=== PATIENT | female | born 1990 | race African-American/Black ===

== ENCOUNTER 2025-04-02 17:32 | Emergency (ER) | payer MEDICAID, SELFPAY ==
--- OUTSIDE RECORDS SUMMARY | 2024-09-18 05:00 | XMS_ITS ---
Author Organization [facility] Address [address] [place] [address] Care Team Providers Care Precision Lens Generator Name Role Phone Migration, Provider Unavailable Unavailable REASON FOR VISIT EMR-Jaime Encounters Encounter Location Date Provider Diagnosis [facility] [address] [place] [address] 09/18/2024 Provider Migration Plan Of Treatment Medication Medication Name Sig Start Date Stop Date Notes Diflucan 150 mg 1 tablet oral 1 time per day; Duration: 1 days 07/21/2018 07/22/2018 Progress Notes * THOMAS MarikaOB:1990 (35 yo F)Acc No.[id number]:09/18/2024 Patient: Eugenie TOMLINSON :1990 A ge:34 Y S ex:Female Address:[address] [place] [address], [address] * Refills Stop Diflucan tablet, 150 mg, oral, 1, 1 tablet, 1 time per day, 1 days Subjective: * Chief Complaints: * E MR-Jaime * Medical History: * Surgical History: * Hospitalization/Major Diagno stic Procedure: * Medications: Objective: * Vitals: * Physical Examination: Assessment: Plan: * Treatment: * Procedure Codes: * * Date:
--- OUTSIDE RECORDS SUMMARY | 2024-09-19 05:00 | XMS_ITS ---
Author Organization [facility] Address [address] [place] [address] Care Team Providers Care Painter Helper Sign Name Role Phone Migration, Provider Unavailable Unavailable Allergies Allergen (clinical drug ingredient) Drug/Non Drug Allergy documented on EMR Reaction Allergy Type Onset Date Status sulfamethoxazole / trimethoprim Bactrim Hives Drug Allergy Active metronidazole Flagyl Unknown Drug Allergy Act julio Keflex Unknown Drug Allergy Active Vicodin Unknown Drug Allergy Active REASON FOR VISIT EMR-Jaime Encounters Encounter Location Date Provider Diagnosis [facility] [address] [place] [address] 09/19/2024 Provider Migration Plan Of Treatment No Information Progress Notes * THOMAS MarikaOB:1990 (35 yo F)Acc No.[id number]:09/19/2024 Patient: Eugenie TOMLINSON :1990 A ge:34 Y S ex:Female Address:[address] [place] [address], [address] Subjective: * Chief Complaints: * E MR-Jaime * Medical History: * Surgical History: * Hospitalization/Major Diagno stic Procedure: * Medications: * Allergies: B actrim: Hives - AllergyFlagyl: AllergyKeflex: AllergyVicodin: Allergy Objective: * Vitals: * Physical Examination: Assessment: Plan: * Treatment: * Procedure Codes: * * Date:
[2025-04-02] VITALS (7 sets, daily range): BP systolic 129–168; BP diastolic 82–120; PULSE 88–93; TEMP 37; O2SAT 100; BMI 35.2
--- NOTE | 2025-04-02 17:41 | ECG_ITS ---
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
--- NOTE | 2025-04-02 17:41 | XR_ITS ---
[place] [address] Patient Name: RICARDO SHAH MRN: [id number] date: 1990 Sex: F Assigned Patient Location: ED.MAIN Current Patient Location: ED.MAIN Accession/Order Number: [id number] Exam Date: 04/02/2025 18:07 Report Date: 04/02/2025 18:08 At the request of: CEE BORDEN NP Procedure: XR chest 2V XR chest 2V 04/02/2025 6:05 PM SIGNS AND SYMPTOMS: ^sob ^Y PROTOCOL: Frontal and lateral radiographs of the chest COMPARISON: None FINDINGS: The trachea is midline. The heart and mediastinal structures are within normal limits. The lung parenchyma is clear. The bony thorax is intact. XR/XR chest 2V IMPRESSION: No acute cardiopulmonary pathology. Impression dictated by: Rudy Raymond M.D. 04/02/2025 6:08 PM Dictation Location: [place] [address] Electronically authenticated by: [id number] Y Date: 04/02/2025 18:08
--- NOTE | 2025-04-02 17:43 | ED.GENADUL1 ---
HPI HPI - General Adult General Chief complaint: Shortness of Breath/Dyspnea Stated complaint: SHORTNESS OF BREATH HEART IS BEATING FAST Time Seen by Provider: 04/02/25 17:41 History of Present Illness HPI narrative: Patient is a 35-year-old -Armenian female who presents to the emergency department today for evaluation concerns for shortness of breath. She endorses she was swimming at the [employer] today and while driving back home she began feeling short of breath. No chest pain. She has any dizziness or syncope. No abdominal pain or nausea/vomiting. No fever/chills or cough/cold symptoms. She denies any allergies to medication. She reports she is a non-smoker. No history of VTE. She mention she is not on any hormonal control and no long distance travel. Related Data Home Medications ?Medication ?Instructions ?Recorded ?Confirmed phentermine 37.5 mg tablet 37.5 mg PO DAILY 04/02/25 04/02/25 Allergies Allergy/AdvReac Type Severity Reaction Status Date / Time acetaminophen (From Vicodin) Allergy Anaphylaxis Verified 04/02/25 17:42 cephalexin (From Keflex) Allergy hives Verified 04/02/25 17:42 hydrocodone (From Vicodin) Allergy Anaphylaxis Verified 04/02/25 17:42 sulfamethoxazole (From Allergy Hives Verified 04/02/25 17:42 Bactrim) trimethoprim (From Bactrim) Allergy Hives Verified 04/02/25 17:42 Review of Systems ROS Status of ROS 10 or more systems reviewed and unremarkable except as noted in history and below PFSH PFSH Social History Little interest or pleasure in doing things: not at all Feeling down, depressed, or hopeless: not at all Exam Narrative Exam Narrative: Constituational: Awake/ alert, no apparent distress, well hydrated HENMT: normocephalic, external ears normal, moist oral mucous membranes and oropharynx normal, no trismus, no stridor Eyes: EOMI and conjunctivae normal Neck: ROM intact Chest: inspection of chest normal Respiratory: Normal respiratory effort, clear to auscultation bilaterally Cardio: regular rate and regular rhythm GI: soft to palpation and non-tender Back: nontender MSK: ROM intact, +NVI Skin: no rashes or petechiae Neuro: no focal deficits Psych: mental status grossly normal Constitutional Vital Signs, click to edit/add: Last Vital Signs Temp 98.6 F 07/12/25 17:42 Pulse 90 04/02/25 18:10 Resp 18 04/02/25 18:10 BP 138/82 04/02/25 18:09 Pulse Ox 100 04/02/25 18:10 O2 Del Method Room Air 04/02/25 17:42 Course Vital Signs Vital signs: Vital Signs Temperature 98.6 F 04/02/25 17:42 Pulse Rate 93 H 04/02/25 17:42 Respiratory Rate 24 H 04/02/25 17:42 Blood Pressure 168/120 H 04/02/25 17:42 Pulse Oximetry 100 04/02/25 17:42 Oxygen Delivery Method Room Air 04/02/25 17:42 Temperature 98.6 F 04/02/25 17:42 Pulse Rate 90 04/02/25 18:10 Respiratory Rate 18 04/02/25 18:10 Blood Pressure 138/82 04/02/25 18:09 Pulse Oximetry 100 04/02/25 18:10 Oxygen Delivery Method Room Air 04/02/25 17:42 Medical Decision Making MDM Narrative Medical decision making narrative: Patient is a well-appearing 35-year-old -Armenian female who presented to the emergency department today for evaluation concerns for shortness of breath. Initial examination vital signs overall stable. She does not appear to be exhibiting any ischemic symptoms and does appear euvolemic on exam. No clinical evidence concerning for anaphylaxis or angioedema in addition as patient did mention [place]. EKG without acute changes and troponin is negative x 1. Normal BNP. D-dimer within normal range. Chest x-ray without critical findings. Labs stable as below. Patient was reevaluated multiple times while in the emergency department and had no significant changes in condition. She has otherwise remained hemodynamically stable. Clinical impression dyspnea, question for possible anxiety. Discussed this with the patient including recommendations for supportive care. Advised on follow-up with patient's primary care provider for reevaluation. Discussed signs and symptoms of any worsening condition and when to consider reevaluation by the emergency department. Patient verbalized an understanding of this and is agreeable with the plan to be discharged home. Medical Records Medical records reviewed: Yes I reviewed the patient's medical records Lab Data Lab results reviewed: Yes I reviewed the patient's lab results Labs: Lab Results 04/02/25 Range/Units 17:55 WBC 5.7 (4.0-11.0) 10^3/uL RBC 4.02 L (4.20-5.40) 10^6/uL Hgb 12.0 (12.0-16.0) g/dL Hct 36.0 (36.0-48.0) % MCV 89.6 (81.0-99.0) fL MCH 29.9 (26.7-34.0) pg MCHC 33.3 (29.9-35.2) g/dL RDW 12.7 (11.0-15.0) % Plt Count 212 (150-450) 10^3/uL MPV 9.6 (9.5-13.5) fL Neut % (Auto) 47.5 (43.0-75.0) % Lymph % (Auto) 38.3 (20.5-60.0) % Lander % (Auto) 10.7 (1.7-12.0) % Eos % (Auto) 2.6 (0.9-7.0) % Baso % (Auto) 0.5 (0.2-2.0) % Neut # (Auto) 2.7 (1.4-6.5) 10^3/uL Lymph # (Auto) 2.2 (1.2-3.8) 10^3/uL Lander # (Auto) 0.6 (0.3-0.8) 10^3/uL Eos # (Auto) 0.2 (0.0-0.7) 10^3/uL Baso # (Auto) 0.0 (0.0-0.1) 10^3/uL Abs Immat Gran (auto) 0.02 (0.00-0.03) 10^3/uL Imm/Tot Granulo (auto) 0.4 (0.0-0.5) % D-Dimer 0.35 (<=0.59) mg/L FEU Sodium 141 (136-145) mmol/L Potassium 3.4 L (3.5-5.1) mmol/L Chloride 104 (98-107) mmol/L Carbon Dioxide 24.1 (21.0-32.0) mmol/L Anion Gap 16.3 BUN 16.0 (7.0-18.0) mg/dL Creatinine 0.73 (0.55-1.02) mg/dL Est GFR ( Amer) >60 (>=60 mL/min/1.73m^2) Est GFR (Non-Af Amer) >60 (>=60 mL/min/1.73m^2) BUN/Creatinine Ratio 21.9 Glucose 107 H (74-106) mg/dL Calcium 9.4 (8.5-10.1) mg/dL Total Bilirubin 0.3 (0.2-1.0) mg/dL AST 14 L (15-37) U/L ALT 19 (14-59) U/L Alkaline Phosphatase 96 (46-116) U/L Troponin I High Sens <4.0 L (4.0-51.3) pg/mL NT-Pro-B Natriuret Pep 10.0 (<=450.0) pg/mL Total Protein 7.6 (6.4-8.2) g/dL Albumin 3.8 (3.4-5.0) g/dL Globulin 3.8 g/dL Albumin/Globulin Ratio 1.0 Imaging Data Chest x-ray: Attestation: I have reviewed the pertinent imaging results. Radiologist's impression: ITS Impressions Chest X-Ray 04/02/25 17:41 IMPRESSION: No acute cardiopulmonary pathology. Impression dictated by: Rudy Raymond M.D. 04/02/2025 6:08 PM Dictation Location: [place] [address] Electronically authenticated by: [id number] Y Date: 04/02/2025 18:08 ECG Data Attestation: I personally reviewed and interpreted this ECG as follows: (SR with HR 87, no acute/ischemic changes) Discharge Plan Discharge Chief Complaint: Shortness of Breath/Dyspnea Clinical Impression: Shortness of breath Patient Disposition: Home, Self-Care Prescriptions / Home Meds: No Action phentermine 37.5 mg tablet 37.5 mg PO DAILY Rx Instructions: must administer 30 minutes before or 1-2 hours after breakfast Print Language: Kinyarwanda Instructions: Dyspnea (ED) Additional Instructions: Please follow the primary care provider for reevaluation as discussed. To the ER with any new or worsening symptoms/concerns. Referrals: Physician,Non-Staff, MD [Primary Care Provider] - 1 week
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
--- OUTSIDE RECORDS SUMMARY | 2025-04-02 17:54 | XMS_ITS | Data Portability ---
Author Organization [facility] ([facility] - urgcct Address [address] [facility] [address] [place] [address] Care Team Providers Care Charging Manipulator Name Role Phone ERICK HUYNH Primary Care Provider [phone] ERICK HUYNH Referring Provider Assessment No assessment recorded. Plan of Treatment Reminders Order Date Submit Date Provider Last Modified By Organization Details Last Modified Time Details Appointments None record ed. Lab mycopl asma genita lium DNA, qualit ative, PCR 2024 025 [facility], [address] [place] [address], [address], 5 12:25:05 cultur e, urine 2024 025 [facility], [address] [place] [address], [address], 5 08:00:13 urinal ysis, comple te 2024 025 [facility], [address] [place], [address], 5 01:59:31 pap, LB + HPV - source cervix 2024 025 [email or web address], [address] [place] [address], [address], 5 08:09:23 bacter ial vagino sis + vagini tis panel, vagina l 2024 025 [facility], [address] [place] [address], [address], 5 21:35:25 CT, DNA, qual, PCR, unspec ified specim en 2024 025 [facility], [address] [place] [address], 180[address], 5 12:25:04 NG, DNA, qual, PCR, unspec ified specim en 2024 025 [facility], [address] [place] [address], 210[address], 5 12:25:08 Trepon sujata pallid um Ab,Qn, IA,Ser um or Plasma 2024 025 [facility], [address] [place] [address], [address], 5 01:59:33 HIV 1+2 AB + HIV 1 p24 Ag, qualit ative immuno assay, serum 2024 025 [facility], [address] [place] [address], 07[address], 5 01:59:33 HBsAg (hepat itis B surfac e Ag), serum 2024 025 [facility], [address] [place] [address], 47[address], 5 01:59:33 vitami n D, 25-hyd brenda, total, serum 2024 025 [facility], [address] [place] [address], 259[address], 5 01:59:32 CBC w/ diff 2024 025 [facility], [address] [place] [address], [address], 5 01:59:32 pregna ncy test, urine 2024 025 [facility] [place], [address] [place] [address], [address], [place], [address], 5 10:14:27 pregna ncy test, urine 2024 025 [facility] [place], [address] [place] [address], [address], [place], [address], 5 13:55:34 pregna ncy test, urine 2023 024 [email or web address] [facility] [place], [address] [place] [address], [address] [facility], [place], [address], 4 10:06:58 Referral None record ed. Procedures None record ed. Surgeries None record ed. Imaging electr ocardi ogram 2024 025 [email or web address] [facility] [place], [address] [place] [address], [address] [facility], [place], [address], 5 13:58:36 Medication Orders famoti dine 20 mg tablet 2024 025 [facility], [address], [place], [address], 5 10:14:16 Zepbou nd 2.5 mg/0.5 mL subcut aneous pen inject or 2024 025 [facility], [address], [place], [address], 5 10:14:17 famoti dine 40 mg tablet 2024 025 [email or web address] [facility], [address], [place], [address], 5 09:46:57 Wegovy 0.5 mg/0.5 mL subcut aneous pen inject or 2024 025 [facility], [address], [place], [address], 5 10:07:25 Wegovy 0.25 mg/0.5 mL subcut aneous pen inject or 2023 024 [facility], [address], [place], [address], 5 10:07:09 ferrou s sulfat e 325 mg (65 mg iron) tablet 2023 024 [email or web address] [facility], [address], [place], [address], 5 09:47:00 Senna with Docusa te Sodium 8.6 mg-50 mg tablet 2023 024 [facility], [address], [place], [address], 10:06:43 Patient TargetsNo targets recorded. Patient Instructions Encounter Date Encounter Id Patient Instructions Last Modified By Organization Details Last Modified Time 08/16/2024 [id number] When You Want to Lose Weight: Care Instructions [email or web address] Not available 08/16/2024 10:05:10 09/24/2024 [id number] When You Want to Lose Weight: Care Instructions [email or web address] Not available 09/24/2024 12:02:38 body mass index: care instructions [email or web address] Not available 09/24/2024 12:02:38 learning about healthy weight [email or web address] Not available 09/24/2024 12:02:37 10/18/2024 [id number] chest pain: care instructions [email or web address] Not available 10/18/2024 10:38:55 11/18/2024 [id number] body mass index: care instructions [email or web address] Not available 11/18/2024 10:10:53 learning about healthy weight [email or web address] Not available 11/18/2024 10:10:53 Reason for Referral None Reported. Results Created Date Observation Date Name Description Value Unit Range Abnormal Flag Note LastModifiedBy Organization Detail LastModifiedTime 08/16/20 24 08/16/2024 pregn mitul test, urine HCG negati ve Not Available [facility] - [address], [address], 08/16/2024 10:06:32 09/24/19 25 09/24/2024 pregn mitul test, urine HCG negati ve Not Available [facility] - [address], [place], [address], 09/24/2024 11:58:20 11/18/1911/18/2024 pregn mitul test, urine HCG negati ve Not Available [facility] - [address], [place], [address], 11/18/2024 10:07:37 12/10/1912/09/2024 URINA LYSIS , COMPL ETE urine appearance CLOUDY Not Available [facility] [address] [place], [address], 12/10/2024 01:59:31 12/10/19 25 12/09/2024 URINA LYSIS , COMPL ETE color STRAW Not Available [facility] [address] [place], [address], 12/10/2024 01:59:31 12/10/19 25 12/09/2024 URINA LYSIS , COMPL ETE glucose NEGATI VE negati ve Not Available [facility] [address] [place] [address], [address], 12/10/2024 01:59:31 12/10/19 25 12/09/2024 URINA LYSIS , COMPL ETE bilirubin NEGATI VE negati ve Not Available [facility] [address] [place] [address], [address], 12/10/2024 01:59:31 12/10/19 25 12/09/2024 URINA LYSIS , COMPL ETE ketones NEGATI VE negati ve Not Available [facility] [address] [place] [address], [address], 12/10/2024 01:59:31 12/10/19 25 12/09/2024 URINA LYSIS , COMPL ETE specific gravity 1.015 1.005- 1.03 Not Available [facility] [address] [place] [address], [address], 12/10/2024 01:59:31 12/10/19 25 12/09/2024 URINA LYSIS , COMPL ETE blood NEGATI VE negati ve Not Available [facility] [address] [place] [address], [address], 12/10/2024 01:59:31 12/10/19 25 12/09/2024 URINA LYSIS , COMPL ETE pH 6.0 5.0-8. 5 Not Available [facility] [address] [place] [address], [address], 12/10/2024 01:59:31 12/10/19 25 12/09/2024 URINA LYSIS , COMPL ETE protein NEGATI VE negati ve Not Available [facility] [address] [place] [address], 74[address], 12/10/2024 01:59:31 12/10/19 25 12/09/2024 URINA LYSIS , COMPL ETE urobilinogen NEGATI VE 0.0-1. 0 Not Available [facility] [address] [place] [address], [address], 12/10/2024 01:59:31 12/10/19 25 12/09/2024 URINA LYSIS , COMPL ETE nitrite POSITI VE negati ve abnormal Not Available [facility] [address] [place] [address], [address], 12/10/2024 01:59:31 12/10/19 25 12/09/2024 URINA LYSIS , COMPL ETE leukocyte est 2+ negati ve abnormal Not Available [facility] [address] [place] [address], [address], 12/10/2024 01:59:31 12/10/19 25 12/09/2024 URINA LYSIS , COMPL ETE RBC's <2 <2 Not Available [facility] [address] [place] [address], 7[address], 12/10/2024 01:59:31 12/10/19 25 12/09/2024 URINA LYSIS , COMPL ETE WBC's 20-50 <5 abnormal Not Available [facility] [address] [place] [address], 949[address], 12/10/2024 01:59:31 12/10/19 25 12/09/2024 URINA LYSIS , COMPL ETE epithelial cells <5 <5 Not Available [facility] [address] [place] [address], [address], 12/10/2024 01:59:31 12/10/19 25 12/09/2024 URINA LYSIS , COMPL ETE cast NONE none/l pf Not Available [facility] [address] [place] [address], 98266, 12/10/2024 01:59:31 12/10/19 25 12/09/2024 URINA LYSIS , COMPL ETE crystals NONE none Not Available [facility] [address] [place] [address], 61683, 12/10/2024 01:59:31 12/10/1912/09/2024 URINA LYSIS , COMPL ETE mucus NEGATI VE negati ve Not Available [facility] [address] [place] [address], 47592, 12/10/2024 01:59:31 12/10/1912/09/2024 URINA LYSIS , COMPL ETE bacteria 4+ none abnormal Not Available [facility] [address] [place] [address], 04944, 12/10/2024 01:59:31 12/10/1912/09/2024 VITAM IN D, 25 OH vitamin D, 25 oh 27 NG/mL 30-100 low Refer ence Range : Vitam in D Statu s 25 OH Vitam in D (ng/m L) __ Defic ient = <20 ng/mL Insuf ficie nt = 20 to <30 Suffi cient = 30-10 0 Upper Safet y Limit = >100 Perfo rmed at [facility] , [address] [place] [address] Not Available [facility] [address] [place] [address], [address], 12/10/2024 01:59:32 12/10/1912/09/2024 CBC AND COMPL ETE DIFF WBC 5.0 K/cum m 3.5-10 .6 Not Available [facility] [address] [place] [address], 73124, 12/10/2024 01:59:32 12/10/19 25 12/09/2024 CBC AND COMPL ETE DIFF RBC 4.12 M/cum m 3.91-5 .15 Not Available [address], [address], 12/10/2024 01:59:32 12/10/19 25 12/09/2024 CBC AND COMPL ETE DIFF hemoglobin 12.1 g/dL 11.5-1 5.1 Not Available [facility] [address] [place] [address], 29199, 12/10/2024 01:59:32 12/10/19 25 12/09/2024 CBC AND COMPL ETE DIFF hematocrit 37.6 % 34.4-4 4.2 Not Available [facility] [address] [place] [address], 24281, 12/10/2024 01:59:32 12/10/19 25 12/09/2024 CBC AND COMPL ETE DIFF MCV 91.2 fL 82.0-9 7.0 Not Available [facility] [address] [place] [address], 40785, 12/10/2024 01:59:32 12/10/19 25 12/09/2024 CBC AND COMPL ETE DIFF MCH 29.5 pg 26.5-3 2.7 Not Available [facility] [address] [place] [address], 22702, 12/10/2024 01:59:32 12/10/19 25 12/09/2024 CBC AND COMPL ETE DIFF MCHC 32.3 % 32.1-3 5.3 Not Available [facility] [address] [place] [address], 81058, 12/10/2024 01:59:32 12/10/19 25 12/09/2024 CBC AND COMPL ETE DIFF RDW 13.6 % 11.7-1 4.9 Not Available [facility] [address] [place] [address], 71216, 12/10/2024 01:59:32 12/10/19 25 12/09/2024 CBC AND COMPL ETE DIFF platelet 227 K/cum m 150-45 0 Not Available [facility] [address] [place] [address], 09279, 12/10/2024 01:59:32 12/10/19 25 12/09/2024 CBC AND COMPL ETE DIFF MPV 8.5 fL 7.3-11 .4 Not Available [facility] [address] [place] [address], 50924, 12/10/2024 01:59:32 12/10/19 25 12/09/2024 CBC AND COMPL ETE DIFF lymphs # 1.4 K/cum m 1.0-3. 8 Not Available [facility] [address] [place] [address], 01392, 12/10/2024 01:59:32 12/10/19 25 12/09/2024 CBC AND COMPL ETE DIFF lymphs % 29 % 10-46 Not Available [facility] [address] [place] [address], 27262, 12/10/2024 01:59:32 12/10/19 25 12/09/2024 CBC AND COMPL ETE DIFF monos # 0.5 K/cum m 0.10-0 .88 Not Available [facility] [address] [place] [address], 38679, 12/10/2024 01:59:32 12/10/19 25 12/09/2024 CBC AND COMPL ETE DIFF mono % 10 % 1-12 Not Available [facility] [address] [place] [address], 20954, 12/10/2024 01:59:32 12/10/19 25 12/09/2024 CBC AND COMPL ETE DIFF neut # 2.8 K/cum m 1.58-7 .13 Not Available [facility] [address] [place] [address], 81205, 12/10/2024 01:59:32 12/10/19 25 12/09/2024 CBC AND COMPL ETE DIFF neut % 57 % 38-76 Not Available [facility] [address] [place] [address], 42234, 12/10/2024 01:59:32 12/10/19 25 12/09/2024 CBC AND COMPL ETE DIFF eos # 0.2 K/cum m 0.0-0. 60 Not Available [facility] [address] [place] [address], 92104, 12/10/2024 01:59:32 12/10/19 25 12/09/2024 CBC AND COMPL ETE DIFF eos % 3 % 0-8 Not Available [address], [address], 12/10/2024 01:59:32 12/10/19 25 12/09/2024 CBC AND COMPL ETE DIFF baso # 0.1 K/cum m 0.0-0. 20 Not Available [address], [address], 12/10/2024 01:59:32 12/10/19 25 12/09/2024 CBC AND COMPL ETE DIFF baso % 1 % 0-2 Not Available [address], [address], 12/10/2024 01:59:32 12/10/19 25 12/09/2024 CBC AND COMPL ETE DIFF nucleated RBC's 0.0 K/cum m Not Available [address], [address], 12/10/2024 01:59:32 12/10/19 25 12/09/2024 CBC AND COMPL ETE DIFF WBC morphology SLIGHT VACUOL ATION Not Available [facility] [address] [place] [address], 50781, 12/10/2024 01:59:32 12/10/19 25 12/09/2024 CBC AND COMPL ETE DIFF platelet sufficiency NORMAL normal Not Available [address], [address], 12/10/2024 01:59:32 12/10/19 25 12/09/2024 CBC AND COMPL ETE DIFF manual diff review 1 Not Available [facility] [address] [place] [address], 58018, 12/10/2024 01:59:32 12/10/19 25 12/09/2024 HEPAT ITIS BS ANTIG EN hepatitis BS antigen NEGATI VE negati ve Perfo rmed at [facility] , [address] [place] [address] Not Available [facility] [address] [place] [address], 93508, 12/10/2024 01:59:33 12/10/19 25 12/09/2024 HIV AG/AB COMBO HIV Ag/Ab combo NONREA CTIVE nonrea ctiv Not Available [facility] [address] [place] [address], 05480, 12/10/2024 01:59:33 12/10/19 25 12/09/2024 SYPHI LIS EIA SCREE N syphilis trep screen 0.16 index <0.90 Not Available [facility] [address] [place] [address], 26773, 12/10/2024 01:59:33 12/10/19 25 12/09/2024 SWAB CHLAM AMP specimen description ch CERVIX Not Available [facility] [address] [place] [address], 48971, 12/10/2024 12:25:04 12/10/19 25 12/09/2024 SWAB CHLAM AMP swab chlam amp NEGATI VE negati ve Perfo rmed at [facility] , [address] [place] [address] Not Available [facility] [address] [place] [address], 54666, 12/10/2024 12:25:04 12/10/19 25 12/09/2024 SWAB MYCOG AMP specimen description my ENDOTR ACHEAL Not Available [facility] [address] [place] [address], 658[address], 12/10/2024 12:25:05 12/10/19 25 12/09/2024 SWAB MYCOG AMP swab mycog amp NEGATI VE negati ve Perfo rmed at [facility] , [address] [place] [address] Not Available [address], [address], 12/10/2024 12:25:05 12/10/19 25 12/09/2024 SWAB GC AMP specimen description go END Not Available [address], [address], 12/10/2024 12:25:08 12/10/19 25 12/09/2024 SWAB GC AMP swab GC amp NEGATI VE negati ve Perfo rmed at [facility] , [address] [place] [address] Not Available [address], [address], 12/10/2024 12:25:08 12/10/19 25 12/09/2024 VAGIN OSIS 3 DNA PROBE S results NEGATI VE TRICHO MONAS VAGINA LIS NEGAT SUDHA GARDN ERELL A VAGIN SEBLE NEGAT SUDHA CATALINA DA SPECI ES The assay is a DNA Probe based on Nucle ic Acid Hybri dizat ion. A negat sudha resul t does not rule out possi ble vagin osis/ vagin itis with Catalina da, Garde nerel la or Trich omona s russ ntrat ions below the detec tion limit of the assay . Diagn osis shoul d not be based on test resul ts alone , but shoul d be inter prete d in conju nctio n with clini harsh data. Not Available [address], [address], 12/10/2024 21:35:25 12/10/19 25 12/09/2024 VAGIN OSIS 3 DNA PROBE S report status FINAL 2024 Perfo rmed at [facility] , [address] [place] [address] Not Available [address], [address], 12/10/2024 21:35:25 12/10/19 25 12/10/2024 VAGIN OSIS 3 DNA PROBE S specimen description (NOTE) VAG Not Available [address], [address], 12/10/2024 21:35:25 12/10/19 25 12/10/2024 VAGIN OSIS 3 DNA PROBE S special requests NONE Not Available [address], [address], 12/10/2024 21:35:25 12/10/19 25 12/09/2024 URINE CULT W/TJ CEPT results >100,0 00 CFU/mL ESCHER ICHIA COLI If cefaz cedric TK is <=16 then it is consi dered susce ptibl e for uncom plica aurora UTI by E. coli, K. pneum oniae , or P. mirab ilis Not Available [address], [address], 12/12/2024 08:00:13 12/10/19 25 12/09/2024 URINE CULT W/TJ CEPT report status FINAL 2024 Not Available [address], [address], 12/12/2024 08:00:13 12/10/19 25 12/10/2024 URINE CULT W/TJ CEPT specimen description (NOTE) URINE BORAT E Not Available [address], [address], 12/12/2024 08:00:13 12/10/19 25 12/10/2024 URINE CULT W/TJ CEPT special requests NONE Not Available [address], [address], 12/12/2024 08:00:13 12/10/19 25 12/09/2024 SUSCE PTIBI LITY Unknown Analyte (NOTE) ORGAN ISM >100, 000 CFU/m L ESCHE BONNIE A COLI METHO D TK SUSCE PTIBI LITY AMIKA ISABELLA <=8 SUSCE PTIBL E AMP/S ULBAC MEJIA <=1/0 .5 SUSCE PTIBL E AMPIC ILLIN <=4 SUSCE PTIBL E AZTRE ONAM <=2 SUSCE PTIBL E CEFAZ CEDRIC <=1 CEFEP JHON <=1 SUSCE PTIBL E CEFTA ZIDIM E <=2 SUSCE PTIBL E CEFTR IAXON E <=1 SUSCE PTIBL E ERTAP ENEM <=0.2 5 SUSCE PTIBL E GENTA MICIN <=2 SUSCE PTIBL E MEROP ENEM <=0.5 SUSCE PTIBL E NITRO FURAN TOIN <=16 SUSCE PTIBL E PIPER ACIL/ TAZOB ACTAM <=2/4 SUSCE PTIBL E TOBRA MYCIN <=2 SUSCE PTIBL E TRIME TH/GILLIS LFA <=0.5 /9.5 SUSCE PTIBL E Not Available [facility] [address] [place], [address], 12/12/2024 08:00:15 12/10/19 25 12/09/2024 CYTOL OGY MATERIALS HANDLER OUTRE [facility] interpretati on [facility] Cytop athol ogy Depar tment [address] [place] [address] Tel: Fax: Gynec ologi c Cytol ogy Repor t Patie nt Name: RICARDO SHAH Sushma Patho logy #:[id number] Site: Located within [facility] Med. Rec. #: [id number] Accou nt #: [id number] Colle cted: 2024 Locat ion: [id number] (LN) Recei nanci: 2024 : 1989 (Age: 34) Gende r: F Repor aurora: 2024 Order ing Phy: KARRI MARION N Order Numbe r: [id number] ===== ===== ===== ===== ===== ===== ===== ===== ===== ===== ===== ===== ===== === FINAL CYTOL OGIC INTER PRETA TION SPECI MEN: HPV ThinP rep Pap Test- Cervi harsh / Endoc ervic al ADEQU ACY/Q UALIT Y INDIC ATORS : Satis facto ry for evalu ation . Endoc ervic al/Tr ansfo rmati on zone compo nent prese nt. INTER PRETA TION: NEGAT SUDHA FOR INTRA EPITH ELIAL LESIO N OR MALIG NANT CELLS . Note: All the slide s on this case have been micro scopi cristino exami meghan by the signi ng Cytot echno logis t and/o r patho logis t. The slide s is (are) scree meghan at the [facility] , Cytop athol ogy Depar tment [address], [place] [address] . El ectro nical ly Elsy d Out By LB, CT( CP) * lb/ 25 ===== ===== ===== ===== ===== ===== ===== ===== ===== ===== ===== ===== ===== === DATE OF LAST MENST RUAL PERIO D not given PELVI C EXAM FINDI NGS Pelvi c Exam - Karen l PATIE NT/TR EATME NT HISTO RY No Abnor mal Histo ry SPECI MEN(S ) HPV ThinP rep Pap Test- Cervi harsh / Endoc ervic al PROCE DURES /ADDE NDA RESID UAL SAMPL E SENT FOR HPV TESTI NG DATE ORDER ED: 2024 STATU S: Order ed CPT CODE( S): A: 15734 RSHPV : ressa m The Pap test is a scree antelmo test that aids in the detec tion of cervi harsh cance r and cance r precu rsors . The test is subje ct to both false posit sudha and false negat sudha resul ts. Test inter preta tion shoul d be corre lated with clini harsh histo ry and pelvi c exami natio n. Not Available [facility] [address] [place], [address], 12/13/2024 11:35:59 12/10/19 25 12/09/2024 CYTOL OGY MATERIALS HANDLER OUTRE ACH interpretati on [facility] Cytop athol ogy Depar tment [address] [facility] [place] [address] Tel: Fax: Gynec ologi c Cytol ogy Repor t Patie nt Name: RICARDO SHAH Patho logy #:[id number] Site: Located within [facility] Med. Rec. #: [id number] Accou nt #: [id number] Colle cted: 2024 Locat ion: [id number] (LN) Recei nanci: 2024 : 1989 (Age: 34) Gende r: F Repor aurora: 2024 Order ing Phy: KARRI MARION N Order Numbe r: [id number] ===== ===== ===== ===== ===== ===== ===== ===== ===== ===== ===== ===== ===== === FINAL CYTOL OGIC INTER PRETA TION SPECI MEN: HPV ThinP rep Pap Test- Cervi harsh / Endoc ervic al ADEQU ACY/Q UALIT Y INDIC ATORS : Satis facto ry for evalu ation . Endoc ervic al/Tr ansfo rmati on zone compo nent prese nt. INTER PRETA TION: NEGAT SUDHA FOR INTRA EPITH ELIAL LESIO N OR MALIG NANT CELLS . Note: All the slide s on this case have been micro scopi cristino exami meghan by the signi ng Cytot echno logis t and/o r patho logis t. The slide s is (are) quang christianson at the [facility] , Cytop athol ogy Depar tment [address], [place] [address] . El ectro nical ly Elsy d Out By LB, CT( CP) * lb/ 25 ===== ===== ===== ===== ===== ===== ===== ===== ===== ===== ===== ===== ===== === DATE OF LAST MENST RUAL PERIO D not given PELVI C EXAM FINDI NGS Pelvi c Exam - Karen l PATIE NT/TR EATME NT HISTO RY No Abnor mal Histo ry SPECI MEN(S ) HPV ThinP rep Pap Test- Cervi harsh / Endoc ervic al PROCE DURES /ADDE NDA RESID UAL SAMPL E SENT FOR HPV TESTI NG DATE ORDER ED: 2024 STATU S: Elsy d Out DATE COMPL ETE: 2024 BY: Samara m Inter face DATE REPOR AURORA: 2024 RESUL TS-CO MMENT S HPV 16: NEGAT SUDHA HPV 18: NEGAT SUDHA OTHER HIGH RISK HPV: NEGAT SUDHA (NOTE ) High Risk HPV with genot ype assay ident ifies genot ypes 16 and 18, the two highe st risk HPV genot ypes respo nsibl e for more than 70% of cervi harsh cance rs, while simul taneo usly detec ting 12 other high risk HPV genot ypes (HPV types 31, 33, 35, 39, 45, 51, 52, 56, 58, 59, 66, 68). The assay is real time PCR and is FDA appro nanci. Perfo rmanc e and valid ation of assay was perfo rmed at [facility] . NEG CPT CODE( S): A: 14942 RSHPV : ressa m The Pap test is a scree antelmo test that aids in the detec tion of cervi harsh cance r and cance r precu rsors . The test is subje ct to both false posit sudha and false negat sudha resul ts. Test inter preta tion shoul d be corre lated with clini harsh histo ry and pelvi c exami natio n. Not Available [facility] [address] [place], [address], 12/13/2024 11:54:11 10/18/19 elect rocar diogr am No observ ation record ed. [email or web address] [facility] [place] [facility] [address] [place] [address] [address], [place], [address], 10/18/2024 10:07:34 10/18/1910/18/2024 elect rocar diogr am No observ ation record ed. [email or web address] Not Available 09/23 13:36:32 11/01/19 25 10/18/2024 elect rocar diogr am No observ ation record ed. BARCODE Not Available 2024 10:39:24 11/11/19 25 10/18/2024 elect rocar diogr am No observ ation record ed. BARCODE Not Available 2024 16:19:13 Result Notes None recorded. Problems Name Problem SNOMED Code Status Onset Date Resolution Date Notes Provider Name and Address Organization Details Recorded Time Allergic rhinitis 38051779 Active ACTIVE; Notes: Medical Not Available [facility] 8 02:35:46 Obese class I [id number] 97533 Active 2015 ACTIVE; Notes: Problem added by Discern Expert since patient' s BMI is now within the 30-39.9 range.~P roblem resolved by Discern Expert since patient' s BMI is now outside of the 30-39.9 range.~ Problem reactiva aurora by Discern Expert since patient' s BMI is now within the 30-39.9 range, [place] [address] [facility] [address], [address], [facility] 22:28:46 Anemia 266131261 Active ACTIVE; Notes: Medical Not Available [facility] 8 02:35:46 Atopic dermatit is 32537883 Active ACTIVE; Notes: Medical Not Available [facility] 8 02:35:46 Palpitat ions 97016273 Active ACTIVE; Notes: Medical Not Available [facility] 8 02:35:46 Concussi on Active ACTIVE; Started: 2007; Notes: [place] [address], [address], [facility] 2 22:28:46 Vitamin D below referenc e range 916297225 Active ACTIVE; Notes: Medical Not Available [facility] 8 02:35:46 Pregnanc y 91094945 Completed 202004/30/2021 [place] [address], [address], [facility] 4 15:31:04 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 247906194 Active 2020 [place] [address], [address], [facility] 2 22:28:46 Pain in right hand 2979331824 74218 Active 2020 tingling at [place] [address], [address], [facility] 2 22:28:46 Lacerati on of breast 501395711 Active 2020 [place] [address], [address], [facility] 2 22:28:46 Morbid obesity 496464539 Active 2016 [place] [address], [address], [facility] 2 22:28:46 Concussi on with no loss of consciou sness 57158218 Active 2007 [place] [address], [address], [facility] 2 22:28:46 Body mass index 30+ - obesity 938738035 Active 2014 [place] [address], [address], [facility] 2 22:28:46 Closed fracture of scapula 76677495 Active 2007 [place] [address], [address], [facility] 2 22:28:46 Asthma 305641650 [place] [address], [address], [facility] 2 22:28:46 Vaginiti s 07432764 Active 2023 Yazmin Campbell [facility] 4 12:16:33 Irregula r periods 50559607 Active 2023 [place] [address], [address], [facility] 4 11:26:52 Fatigue 62638904 Active 2023 [place] [address], [address], [facility] 4 11:26:58 Intentio nal weight loss 529157522 Active 2023 [place] [address], [address], [facility] 4 11:06:40 Iron deficien cy anemia 21481359 Active 2023 [place] [address], [address], [facility] 4 21:11:39 Obesity 281222935 Active 2023 [place] [address], [address], [facility] 4 15:29:48 Type 2 diabetes mellitus without complica tion 004936363 Active 2023 [place] [address], [address], [facility] 4 15:35:17 Gastroes ophageal reflux disease without esophagi tis 371171928 Active 2024 [place] [address], [address], [facility] 5 10:38:32 Problem Notes None recorded. Procedures Surgical History Date Name Laterality Status Provider Name and Address Organization Details Recorded Time 12/10/19 25 Date of Last Pap Smear completed Lorene De [facility] 12/09/2024 11:51:13 06/27/20 22 PHQ-2 [place] [address], [address], [facility] 06/27/2022 22:27:26 04/24/20 21 PHQ-2 completed Faby Estrella [facility] 04/24/2021 09:36:50 09/26/19 21 PHQ-2 completed Faby Estrella [facility] 09/26/2020 09:46:23 10/08/19 20 PHQ-2 completed Faby Estrella [facility] 10/08/2019 12:25:48 07/26/20 19 PHQ-2 completed Faby Estrella [facility] 07/26/2019 10:21:29 04/08/20 19 PHQ-2 completed Faby Estrella [facility] 04/08/2019 11:52:15 03/31/20 17 Section completed Faby Estrella [facility] 07/09/2018 09:37:01 Imaging Results None recorded. Procedure Notes None recorded. Medical Equipment None Reported. Allergies Allergen ID Allergen Name Allergen Category Reaction Reaction Severity Criticality Documentation Date Start Date Code Code System Note Provider Name and Address Organization Details Recorded Time 20991122 Bactrim medicatio n itching Not available Not available 12/16/2018 05654 9 RxNorm LOPEZ mcnally, [facility] 9 10:15:48 885716 Keflex medicatio n itching Not available Not available 12/16/2018 54414 7 [facility] 10:15:56 761113 terbinafi ne medicatio n rash Not available Not available 11/26/2021 209[address] [place] [address] [facility] [address], [place], [address], [facility] 2 15:40:33 752615 cephalexi n medicatio n Not available Not available Not available 06/27/2022 2231 [place] [address] [facility] [address], [place], [address], [facility] 2 22:29:02 397396 metronida zole medicatio n Not available Not available Not available 06/27/20222004 6922 [place] [address] [facility] [address], [place], [address], [facility] 2 22:29:02 027637 lactose food,medi cation Not available Not available Not available 10/27/2023 6211 [place] [address] [facility] [address], [place], [address], [facility] 4 13:03:20 87424 codeine medicatio n respirato ry distress Not available Not available 03/26/20182007 2670 RxNorm Not Available [facility] 8 16:50:31 09844 Flagyl medicatio n rash Not available Not available 03/26/2018200486 6 RxNorm Not Available [facility] 8 16:50:31 Medications Name Sig Start Date Stop Date Status Note LastModified by Organization Details LastModified Time bupropion HCl SR 150 mg tablet,12 hr sustained-r elease Take 1 tablet twice a day by oral route for 90 days. 06/09 completed Not Available Not Available Not Available Colace 100 mg capsule Take 1 capsule every day by oral route. 10/08 completed Not Available Not Available Not Available Vitamin B-6 25 mg tablet Take 1 tablet every day by oral route. 10/27 completed Not Available Not Available Not Available cetirizine 10 mg tablet 07/15 completed Not Available Not Available Not Available azithromyci n 250 mg tablet take 2 tablets by mouth TODAY then take 1 tablet DAILY FOR 4 DAYS 06/13 completed Not Available Not Available Not Available fluconazole 150 mg tablet take 1 tablet by mouth immediate ly then IF SYMPTOMS FAIL TO IMPROVE IN 3 DAYS REPEAT TREATMENT 07/15 completed Not Available Not Available Not Available Loestrin Fe 10/11 (28-Day) 1 mg-20 mcg (21)/75 mg (7) tablet Take 1 tablet every day by oral route. 10/17 completed Not Available Not Available Not Available Keflex 500 mg capsule Take 1 capsule twice a day by oral route for 7 days. 01/04 completed Not Available Not Available Not Available phenazopyri dine 200 mg tablet 07/15 completed Not Available Not Available Not Available famotidine 40 mg tablet Take 1 tablet every day by oral route for 15 days. 11/18 completed Not Available Not Available Not Available prednisone 20 mg tablet 07/15 completed Not Available Not Available Not Available Tubersol 5 tub. unit/0.1 mL intradermal injection solution Inject 0.1 mL by intraderm al route. 07/15 completed Not Available Not Available Not Available loperamide 2 mg tablet Take 1 tablet twice a day by oral route. 11/18 completed Not Available Not Available Not Available triamcinolo ne acetonide 0.1 % topical cream Apply 1 applicati on twice a day by topical route. 06/09 completed Not Available Not Available Not Available Macrobid 100 mg capsule Take 1 capsule every 12 hours by oral route for 7 days. 2024 active Not Available Not Available Not Avai lable ciclopirox 8 % topical solution apply 1 applicato rful topically once daily 11/14 completed Not Available Not Available Not Available terbinafine HCl 250 mg tablet Take 1 tablet every day by oral route for 30 days. 12/07 completed Not Available Not Available Not Available famotidine 20 mg tablet Take 1 tablet every day by oral route for 30 days. active Not Available Not Available No t Available nystatin 100,000 unit/gram topical cream APPLY TO THE AFFECTED AREA(S) BY TOPICAL ROUTE 2 TIMES PER DAY 07/15 completed Not Available Not Available Not Available clotrimazol e-betametha sone 1 %-0.05 % topical cream 07/15 completed Not Available Not Available Not Available promethazin e 25 mg tablet Take 1 tablet every 4 hours by oral route. 10/27 completed Not Available Not Available Not Available ibuprofen 400 mg tablet 10/27 completed Not Available Not Available Not Available clindamycin 2 % vaginal cream Insert 1 applicato rful every day by vaginal route at bedtime for 5 days. 04/08 completed Not Available Not Available Not Available ibuprofen 600 mg tablet take 1 tablet by mouth every 8 hours if needed for fever or pain 06/27 completed Not Available Not Available Not Available methylpredn isolone 4 mg tablets in a dose pack Day 1: 8 mg PO before breakfast , 4 mg after lunch, 4 mg after dinner, and 8 mg at bedtimeDa y 2: 4 mg PO before breakfast , 4 mg after lunch, 4 mg after dinner, and 8 mg at bedtimeDa y 3: 4 mg PO before breakfast , 4 mg after lunch, 4 mg after dinner, and 4 mg at bedtimeDa y 4: 4 mg PO before breakfast , 4 mg after lunch, and 4 mg at bedtimeDa y 5: 4 mg PO before breakfast , and 4 mg at bedtimeDa y 6: 4 mg PO before breakfast 12/07 completed Not Available Not Available Not Available Vitamin D2 1,250 mcg (50,000 unit) capsule Take 1 capsule every week by oral route. 01/04 completed Not Available Not Available Not Available fluticasone propionate 50 mcg/actuati on nasal spray,suspe nsion [place] 1 spray every day by intranasa l route for 30 days. 07/15 completed Not Available Not Available Not Available clotrimazol e 1 % topical cream apply to affected area topically twice a day 11/14 completed Not Available Not Available Not Available Tylenol Extra Strength 500 mg tablet Take 1 tablet every 6 hours by oral route. 07/15 completed Not Available Not Available Not Available oxycodone 5 mg tablet TAKE 1 TABLET BY MOUTH EVERY 6 HOURS NEEDED FOR PAIN 06/07 completed Not Available Not Available Not Available apple cider vinegar 300 mg tablet Take by oral route. 01/04 completed Not Available Not Available Not Available FeroSul 325 mg (65 mg iron) tablet TAKE 1 TABLET BY MOUTH ONCE DAILY FOR 30 DAYS active Not Available Not Available No t Available Probiotic 10/08 completed Not Available Not Available Not Available Plus (calcium carbonate) 27 mg iron-1 mg tablet Take 1 tablet every day by oral route. 06/09 completed Not Available Not Available Not Available lidocaine 5 % topical ointment APPLY TO AFFECTED AREA(S) BY TOPICAL ROUTE 1-4 TIMES DAILY NEEDED 06/09 completed Not Available Not Available Not Available Estarylla 0.25 mg-0.035 mg tablet TAKE 1 TABLET BY MOUTH ONCE DAILY 07/15 completed Not Available Not Available Not Available Stimulant Laxative Plus 8.6 mg-50 mg tablet TAKE 1 TABLET BY MOUTH ONCE DAILY AT BEDTIME FOR 30 DAYS 2024 active Not Available Not Available Not Avai lable Trulicity 0.75 mg/0.5 mL subcutaneou s pen injector Inject 0.75 mg every week by subcutane ous route for 30 days. 08/16 completed Not Available Not Available Not Available Norlyda 0.35 mg tablet 10/27 completed Not Available Not Available Not Available Wegovy 0.25 mg/0.5 mL subcutaneou s pen injector Inject by subcutane ous route for 28 days. 11/18 completed Not Available Not Available Not Available Wegovy 0.5 mg/0.5 mL subcutaneou s pen injector INJECT 0.5 MG EVERY WEEK BY SUBCUTANE OUS ROUTE FOR 30 DAYS. 11/18 completed Not Available Not Available Not Available Zepbound 2.5 mg/0.5 mL subcutaneou s pen injector Inject 2.5 mg every week by subcutane ous route for 30 days. 2024 active Not Available Not Available Not Avai lable Vitals Date Recorded Body height Oxygen saturation Oxygen saturation in Arterial blood by Pulse oximetry Heart rate Body mass index (BMI) Body weight Body temperature Systolic And Diastolic Provider Name and Address Organization Details Last Updated DateTime 5 160.02 cm 99 % 99 % 76 /min 37.4 kg/m2 65407.9 9 g 97.1 [degF] 111/63 mm[Hg] Kellie Lozano [facility] 5 11:37:47 Date Recorded Body height Heart rate Oxygen saturation Oxygen saturation in Arterial blood by Pulse oximetry Respiratory rate Body temperature Body mass index (BMI) Body weight Systolic And Diastolic Provider Name and Address Organization Details Last Updated DateTime 5 160.02 cm 78 /min 99 % 99 % 16 /min 98.5 [degF] 37.9 kg/m2 53547.7 7 g 115/79 mm[Hg] Lamar Ram [facility] 5 10:05:46 Date Recorded Body height Heart rate Oxygen saturation Oxygen saturation in Arterial blood by Pulse oximetry Heart rate Respiratory rate Body temperature Body mass index (BMI) Body weight Systolic And Diastolic Systolic And Diastolic Provider Name and Address Organization Details Last Updated DateTime 5 160.02 cm 77 /min 96 % 96 % 77 /min 16 /min 97.3 [degF] 38.1 kg/m2 73744.7 6 g 98/69 mm[Hg] 100/69 mm[Hg] Marisabel Stack [facility] 5 09:46:22 Date Recorded Body height Body mass index (BMI) Body weight Body temperature Heart rate Respiratory rate Oxygen saturation Oxygen saturation in Arterial blood by Pulse oximetry Systolic And Diastolic Provider Name and Address Organization Details Last Updated DateTime 5 160.02 cm 38.3 kg/m2 82759.9 5 g 97.8 [degF] 71 /min 16 /min 99 % 99 % 114/74 mm[Hg] Lorene De [facility] 5 11:50:51 Date Recorded Body height Heart rate Oxygen saturation Oxygen saturation in Arterial blood by Pulse oximetry Respiratory rate Body temperature Body mass index (BMI) Body weight Systolic And Diastolic Provider Name and Address Organization Details Last Updated DateTime 4 160.02 cm 83 /min 99 % 99 % 17 /min 98.8 [degF] 37.7 kg/m2 31721.1 7 g 103/71 mm[Hg] Crystal Stone [facility] 4 09:46:43 Social History Question Answer Notes LastModified by Organizat ion Details LastModified Time Tobacco Smoking Status Never Smoker Faby mcnally [facility] 07/09/2018 09:39:21 Do You Have An Advance Directive? No [email or web address] Information n ot available 07/09/2018 Animal Exposure? No Inf ormation not available 10/27/2023 Are You Blind Or Do You Have Difficulty Seeing? No [email or web address] Information not available 02/08/2020 Is Blood Transfusion Acceptable In An Emergency? Yes Information not available 05/06/2024 What Is Your Level Of Caffeine Consumption? None Information not available 10/27/2023 How Much Tobacco Do You Chew? None [email or web address] Information not available 02/08/2020 Are You Deaf Or Do You Have Serious Difficulty Hearing? No Information not available 02/08/2020 What Type Of Diet Are You Following? REGULAR [email or web address] Information n ot available 02/08/2020 How Many Days In The Past Year Have You Had A Heavy Drinking Consumption (4+ Female, 5+ Male)? 1 Information no t available 10/27/2023 Which Of Your Hands Is Dominant? Right Information not available 02/08/2020 Live Alone Or With Others? With Others Information not available 10/27/2023 Does The Patient Have Fever And Cough Or Shortness Of Breath AND In The Last 14 Days Has The Patient Come In Contact With Someone With Confirmed 2019-nCoV? No Information not available 01/03/2020 Does The Patient Have Fever And Cough Or Shortness Of Breath AND In The Last 14 Days Has The Patient Traveled From [facility] [place], [place], [place], [place] Or [place]? No Information not available 01/03/2020 Does The Patient Have Fever And Lower Respiratory Illness Requiring Hospitalization Without An Underlying Diagnosis? No Information not available 01/03/2020 Does The Patient Have Fever Or Lower Respiratory Symptoms Such As Cough Or Shortness Of Breath? No Information not available 01/03/2020 In The Last 14 Days, Has The Patient Traveled To [place], [place], [place], [place] Or [place] Including [place] And [place]? No Information not available 01/03/2020 In The Last 14 Days, Has The Patient Had Close Contact With A Coronavirus Patient? No Information not available 01/03/2020 Does The Patient Have Fever OR Cough OR Shortness Of Breath? No Information not available 02/08/2020 In The Last 14 Days, Has The Patient Had Contact With A COVID-19 Positive Patient Or A COVID-19 Suspect Patient Awaiting Test Results? No [email or web address] Information not available 02/08/2020 If Pulse Oximetry Was Done: Is The Patient's Sp02 Less Than 93% On Room Air? No [email or web address] Information not available 02/08/2020 Does The Patient Have At Least TWO Of These Symptoms? Diarrhea, Chills, Muscle Pain, Repeated Shaking & Chills, Headache, Sore Throat, Or New Loss Of Taste/Smell No Information not available 02/08/2020 Marital Status [email or web address] Infor mation not available 10/27/2023 What Was The Date Of Your Most Recent Tobacco Screening? 12/09/2024 Information n ot available 12/09/2024 Have You Ever Been Counseled For Unhealthy Alcohol Use? No Information not available 10/27/2023 Do You Have Any Pets? No Information not available 10/27/2023 What Is Your Relationship Status? Single Information not available 10/27/2023 How Much Tobacco Do You Smoke? No Information not available 10/27/2023 General Stress Level Low Information not available 10/27/2023 Has Tobacco Cessation Counseling Been Provided? No Information not available 12/09/2024 How Many Years Have You Smoked Tobacco? 0 [email or web address] Information not available 11/18/2018 How Many Days In The Past Year Have You Consumed 4 Or More Drinks? 1 Information not available 10/27/2023 Sex: Female Functional Status Question Answer Note LastModified by Organizat ion Details LastModified Time Do you use any illicit or recreational drugs? No Information not available 10/27/2023 Do you or have you ever used any other forms of tobacco or nicotine? No Information not available 10/27/2023 What is your level of alcohol consumption? Occasional [email or web address] Information not available 02/08/2020 Do you or have you ever used smokeless tobacco? Never used smokeless tobacco Information not available 01/03/2020 Are you currently employed? Yes Information not available 10/27/2023 Urinary incontinence assessment performed? No Information not available 10/27/2023 Are you able to care for yourself? 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 Never used electronic cigarettes Information not available 01/03/2020 What is your exercise level? Moderate Information not available 05/06/2024 Mental Status Question Answer Note LastModified by Organization D etails LastModified Time Do you feel stressed (tense, restless, nervous, or anxious, or unable to sleep at night)? [id number] [email or web address] Information not available 10/27/2023 Family History Relationship Description Onset Age of this Age Resolved Age Notes LastModified by Organization Details LastModified Time Mother Aneurysm reed Not avail able 08/16/2024 09:31:52 Mother Diabetes mellitus [email or web address] Not available 02/21 10:27:46 Maternal Grandmother Aneurysm reed Not available 08/16/2024 09:31:52 Father Diabetes mellitus [email or web address] Not available 02/21 10:27:46 Brother Diabetes mellitus [email or web address] Not available 02/21 10:27:46 Medical History Condition Response Diabetes Type 1 N High Blood Pressure (Hypertension) N Allergy to Foods N Fibroids N No known past medical history recorded b y patient N Cancer N HPV (Human Papillomavirus) N STI's N Endometriosis N Anemia Y Heartburn N No changes to past medical history since last recorded N High Cholesterol N Other Disease(s): N MRSA (Antimicrobial Resistance) N Diabetes Type 2 N Thyroid Disease/Disorder N Osteoporosis N Gynecological History Statement/Question Response Flow Moderate Infertility N Abnormal MMG N Date of LMP 11/22/2024 Fibroids N Post Menopausal Bleeding N Age of first sexual intercourse 15 STIs/STDs N Polycystic Ovary Syndrome (POS) N Dysfunctional Uterine Bleed N Uterine Polyp N Total # of Pregnancies 3 Last Annual Exam Date 12/09/2024 Total # of Miscarriages 01 Change in Period N 0 Endometriosis N Desired Control Method None Types of Partner(s) Male Abnormal Pap Y On BCP's at Conception? N Total # of Births 2 HPV Vaccine Y Duration of Flow (days) 5 Dysmenorrhea N Current Control Method BCPs Age at Menarche 11 Age at First Child 27 Cervical Dysplasia N PMS N Cyst on Cervix N Planning within next year Y Frequency of Cycle (Q days) 28 Sexually Active? Y Date of Last Pap Smear 12/09/2024 Sexual Problems? N Hormone Replacement Therapy N Obstetrics History GPAL:G 2 P 2 0 0 2 Type Value Full Term 2 Living 2 Total 2 Immunizations Vaccine Type Date Status Note Provider Jermaine hilario and Address Organization Details Recorded Time Influenza, split virus, trivalent, preservative 5 [place] [address] [facility] [address], [place], [address], [facility] 10/27/2023 13:03:04 MMR 1 [place] [address], [place], [address], [facility] 10/27/2023 13:01:17 MMR 3 [place] [address] [facility] [address], [place], [address], [facility] 10/27/2023 13:01:17 COVID-19, mRNA, LNP-S, PF, 100 mcg/0.5mL dose or 50 mcg/0.25mL dose 1 [place] [address] [address], [place], [address], [facility] 10/27/2023 13:01:17 COVID-19, mRNA, LNP-S, PF, 100 mcg/0.5mL dose or 50 mcg/0.25mL dose 1 [place] [address] [address], [place], [address], [facility] 10/27/2023 13:01:17 DTP 2 [place] [address] [address], [place], [address], [facility] 10/27/2023 13:01:17 DTP 3 [place] [address] [address], [place], [address], [facility] 10/27/2023 13:01:17 DTP 5 [place] [address] [address], [place], [address], [facility] 10/27/2023 13:01:17 DTP 0 [place] [address] [facility] [address], [place], [address], [facility] 10/27/2023 13:01:17 DTP 0 [place] [address] [address] [facility], [place], [address], [facility] 10/27/2023 13:01:17 [place] 2 [place] [address] [facility] [address], [place], [address], [facility] 10/27/2023 13:01:18 OPV 3 [place] [address] [facility] [address], [place], [address], [facility] 10/27/2023 13:01:18 OPV 5 completed Erick Huynh [place] [address] [place] [address] [address], [place], [address], [facility] 10/27/2023 13:01:18 OPV 0 [place] [address], [place], [address], [facility] 10/27/2023 13:01:18 OPV 0 [place] [address] [facility], [place], [address], [facility] 10/27/2023 13:01:18 Influenza, split virus, trivalent, PF 5 [place] [address], [place], [address], [facility] 10/27/2023 13:01:18 HPV, quadrivalent 8 [place] [address], [place], [address], [facility] 10/27/2023 13:01:18 HPV, quadrivalent 8 [place] [address], [address], [facility] 10/27/2023 13:01:18 HPV, quadrivalent 8 [place] [address], [address], [facility] 10/27/2023 13:01:18 Td (adult), 2 Lf tetanus toxoid, preservative free, adsorbed 3 [place] [address], [address], [facility] 10/27/2023 13:01:18 Hep B, adolescent or pediatric 7 [place] [address], [address], [facility] 10/27/2023 13:01:18 Hep B, adolescent or pediatric 7 [place] [address], [address], [facility] 10/27/2023 13:01:18 Hep B, adolescent or pediatric 6 [place] [address], [address], [facility] 10/27/2023 13:01:18 Hep B, adolescent or pediatric 3 [place] [address], [address], [facility] 10/27/2023 13:01:18 Hep A, ped/adol, 2 dose 8 [place] [address], [address], [facility] 10/27/2023 13:01:18 Hib (PRP-OMP) 2 [place] [address], [address], [facility] 10/27/2023 13:01:18 Hib (PRP-OMP) 3 [place] [address], [address], [facility] 10/27/2023 13:01:18 Past Encounters Encounter ID Performer Location Encounter Start Date Encounter Closed Date Diagnosis/Indication Diagnosis SNOMED-CT Code Diagnosis ICD10 Code Diagnosis Note [id number] SHANNAN MILLER MD [facility] [place] [address] [place] [address] 07/09/2018 09:00:38 07/09/2018 10:25:57 Infection screening NOS 562227883 Z11.3 [id number] Erick miller MD [address] [address] 11/18/2018 11:04:40 11/18/2018 13:23:29 Vaginal irritation 948341786 N89.8 Obesity 702741428 E66.9 [id number] Erick miller MD [address] [address] 12/16/2018 09:43:51 12/16/2018 11:26:45 Vaginal discharge 159414711 N89.8 Obesity 644757157 E66.9 [id number] Lawanda Summers MD [address] [address] 01/04/2019 15:52:39 01/04/2019 17:06:55 Vaginal discharge 547130900 N89.8 Venereal d isease screening 147153737 Z11.3 Candidiasis of vagina 72 336250 B37.3 [id number] Lawanda Summers MD [address] [address] 03/17/2019 15:01:04 03/17/2019 16:48:21 Bacterial vaginosis 718361207 N76.0 Candidiasis of vagina 72 516611 B37.3 Venereal d isease screening 498587173 Z11.3 Increased urine output 628243114 R35.8 [id number] SHANNAN MILLER MD [facility] [employer] - [address] [place] [address] 04/08/2019 11:24:29 04/08/2019 14:08:57 Routine gynecologic examination done 3469791671 9101 Z01.477 [id number] SHANNAN MILLER MD [facility] [employer] [facility] [address] [place] [address] 07/26/2019 10:07:40 07/26/2019 13:00:21 Cervicovaginal cytology specimen unsatisfactory 595685514 R87.942 [id number] SHANNAN MILLER MD [facility] [employer] [facility] [address] [place] [address] 10/08/2019 12:15:17 10/08/2019 12:48:15 Body mass index 40+ - severely obese 810919911 Z68.41 Infection screening NOS 232589057 Z11.3 [id number] SHANNAN MILLER MD [facility] [employer] [facility] [address] [place] [address] 01/03/2020 09:30:16 01/03/2020 12:29:52 Complete miscarriage 270510731 O03.9 [id number] Chao Barbosa MD [facility] [address] [place] [address] 02/08/2020 10:39:40 02/08/2020 11:31:01 Injury of head 37452296 S09.90XD With recurring and worsening headache and with multiple head injury, I recommende d patient to have an MRI of the brain and she will be informed of the results once available. She may take Tylenol for the pain as needed. She will follow-up if with persistenc e or worsening of symptoms. Dizziness 434948719 R42 Patient was seen by OB gynecologi st a month ago and CBC was done which showed low hemoglobin . With possible head injury there is also possibilit y of iron deficiency that may be causing the dizziness. Patient was prescribed with ferrous sulfate 1 tablet twice a day with meals and discussed with her possible side effect such as constipati on so I recommende d for her to have high-fiber diet and increase fluid intake. She will follow-up if with persistenc e or worsening of symptoms. [id number] Erick miller MD [facility] [place] [place] [address] [facility] [place] [address] 04/21/2020 10:18:38 04/21/2020 14:31:23 Adult health examination 441895783 Z00.01 Menorrhagia 481322282 N9 2.0 Low back pain 963142161 M54.5 Mixed anxi ety and depressive disorder 308838593 F41.8 [id number] SHANNAN MILLER MD [facility] [place] - [address] [place] [address] 05/19/2020 10:20:12 05/19/2020 12:48:54 Abnormal uterine bleeding 4718601620 9100 N93.9 [id number] SHANNAN MILLER MD [facility] [employer] [facility] [address] [place] [address] 09/12/2020 08:57:06 09/12/2020 10:36:11 test positive 780471033 Z32.01 Desires repeat c/sectionh x of c/section x 1 [id number] SHANNAN MILLER MD [facility] [place] - [address] [place] [address] 09/26/2020 09:23:37 09/26/2020 14:16:34 Routine care 029823756 Z34.81 Nausea and vomiting 1693 1999 R11.2 [id number] SHANNAN MILLER MD [facility] [place] - [address] [place] [address] 10/17/2020 09:07:47 10/17/2020 11:51:15 Gestation period, 10 weeks 28653814 Z3A.10 Routine an tenatal care 333133896 Z34.81 [id number] SHANNAN MILLER MD [facility] [place] - [place] [address] [place] [address] 11/14/2020 09:11:52 11/14/2020 15:18:41 Gestation period, 14 weeks 05155212 Z3A.14 Routine an tenatal care 921963713 Z34.82 hx of c/section -> desires repeat [id number] SHANNAN MILLER MD [facility] [place] [address] [place] [address] 12/12/2020 10:22:11 12/12/2020 15:41:49 Gestation period, 18 weeks 20303715 Z3A.18 Routine an tenatal care 027828391 Z34.82 hx of c/section -> desires repeat [id number] SHANNAN MILLER MD [facility] [employer] [place] - [place] [address] [place] [address] 01/09/2021 10:11:45 01/09/2021 12:50:35 Gestation period, 22 weeks 07119718 Z3A.22 Routine an tenatal care 266924010 Z34.82 hx of c/section -> desires repeat [id number] SHANNAN MILLER MD [facility] [employer] - [address] [place] [address] 02/06/2021 09:21:48 02/06/2021 11:44:43 Gestation period, 26 weeks 97837985 Z3A.26 Routine an tenatal care 522052543 Z34.82 hx of c/section -> desires repeat [id number] SHANNAN MILLER MD [facility] [place] - [place] [address] [place] [address] 02/27/2021 10:51:13 02/27/2021 14:13:41 Gestation period, 29 weeks 13997181 Z3A.29 Routine an tenatal care 549954776 Z34.83 hx of c/section -> desires repeat [id number] SHANNAN MILLER MD [facility] [place] [address] [place] [address] 03/13/2021 10:10:03 03/13/2021 10:53:25 Gestation period, 31 weeks 32567266 Z3A.31 Routine an tenatal care 641638009 Z34.83 hx of c/section -> desires repeat [id number] SHANNAN MILLER MD [facility] [place] - [address] [place] [address] 03/27/2021 09:04:59 03/27/2021 11:39:28 Gestation period, 33 weeks 27001419 Z3A.33 Routine an tenatal care 684706199 Z34.83 hx of c/section -> desires repeat [id number] SHANNAN MILLER MD [facility] [employer] [facility] [address] [place] [address] 04/10/2021 09:05:32 04/10/2021 10:28:18 Gestation period, 35 weeks 51024006 Z3A.35 Routine an tenatal care 492575208 Z34.83 hx of c/section -> desires repeat [id number] SHANNAN MILLER MD [facility] [employer] [facility] [address] [place] [address] 04/24/2021 08:54:48 04/24/2021 14:19:16 Gestation period, 37 weeks 39627133 Z3A.37 Routine an tenatal care 912565718 Z34.83 hx of c/section -> desires repeat [id number] SHANNAN MILLER MD [facility] [employer] [facility] [address] [place] [address] 05/21/2021 09:44:35 05/21/2021 14:32:15 Postoperative visit 286967783 Z09 [id number] Erick miller MD [facility] [place] [address] [place] [address] 06/07/2021 09:58:43 06/07/2021 12:23:48 Carpal tunnel syndrome of right wrist 5196014851 12390 G56.01 Onychomyco sis of toenails 963479317 B35.1 will need po antifungal currently breast feeding. will advice otc topical meds only for now and follow up in 5 months. a/e and warning signs to eR explained to the patient verbalized understand ing. state 9766954 1 Z39.2 EDPS 8, trying hard to breast feed, baby currently on gentlease formula. no si or hi. Adult heal th examination 912183958 Z00.01 [id number] SHANNAN MILLER MD [facility] [place] [place] [place] [address] [place] [address] 06/18/2021 10:37:35 06/18/2021 15:38:08 care 706949128 Z39.2 RTC for annual examinatio n [id number] SHANNAN MILLER MD [facility] [place] [place] [place] [address] [place] [address] 10/08/2021 11:28:32 10/08/2021 12:13:00 Irregular periods 00181250 N92.6 [id number] Erick miller MD [facility] [place] [place] [address] [facility] [address] [place] [address] 11/07/2021 11:56:47 11/08/2021 08:55:49 Obesity 942851358 E66.09 Onychomyco sis of toenails 979203186 B35.1 states she is off of breast feeding, stopped 2 months ago, no breast milk production . on Femynor. informed patient , a/e of lamisil and its teratogeni city a/e/ pt understand s the risk and wants to proceed with rx. a/e and warning signs to eR explained to the patient verbalized understand ing. Macromastia 513612269 N6 2 M54.6 per previous report from plastics: ASSESSMENT AND PLAN: She is a 30-year-ol d female with symptomati c macromasti a. Based on her body surface area of 2.207, she would require removal of breast tissue of approximat shanta 895-970 per breast. Given her asymmetry, we would likely remove more from the right than the left. We would estimate removing approximat shanta 1000 from the right and 800 grams from the left. At this point, we discussed also her elevated BMI and ideally having her lose some weight prior to surgery to minimize complicati ons. At this point, the patient is uncertain if she would like to pursue a breast reduction given her desire to have another . I did recommend that she work with her primary care physician and consider physical therapy as well as other alternativ e support for her current symptoms. I think she ultimately would benefit from a breast reduction, but the patient just needs to decide what timing works best for her. She can return to see us on an as needed basis.If the report has been electronic allysigned , see completed action list below.____ Gu randa Ceron MD Dysfunctio n of bilateral eustachian tubes 6414261818 112450 H69.83 [id number] Erick miller MD [facility] [address] [facility] [address] [place] [address] 12/07/2021 10:00:51 12/10/2021 08:49:52 Allergic reaction 421693051 T78.49XD Onychomyco sis of toenails 528770298 B35.1 states she is off of breast feeding, stopped 2 months ago, no breast milk production . on Femynor. informed patient , a/e of lamisil and its teratogeni city a/e/ pt understand s the risk and wants to proceed with rx. a/e and warning signs to eR explained to the patient verbalized understand ing. [id number] SHANNAN MILLER MD [facility] [place] [address] [place] [address] 06/03/2022 14:29:55 06/03/2022 15:50:51 Vaginitis 26947922 N76.0 Irregular periods 503279 07 N92.0 Venereal d isease screening 698181505 Z11.3 [id number] Erick miller MD [facility] [address] [facility] [address] [place] [address] 06/27/2022 12:57:13 06/28/2022 11:35:12 Adult health examination 838348391 Z00.01 Screening for cardiovascular system disease 117945089 Z13.6 [id number] Erick miller MD [facility] [address] [address] 07/01/2022 15:07:45 07/02/2022 08:34:28 Tuberculosis screening 177669320 Z11.7 [id number] SHANNAN MILLER MD [facility] [place] [address] [place] [address] 06/13/2023 10:02:42 06/13/2023 11:13:50 Routine gynecologic examination done 5691178273 9101 Z01.419 Renewal of prescription 057597812 Z76.0 [id number] Erick miller MD [facility] [address] [address] 10/27/2023 12:01:24 10/27/2023 13:16:59 Acute vaginitis 89914357 N76.0 Irregular periods 568191 07 N92.5 Adult heal th examination 690155877 Z00.01 Hepatitis C screening 41 1335410 Z11.59 Screening for cardiovascular system disease 975805046 Z13.6 Venereal d isease screening 473928359 Z11.3 Macromastia 306705687 N6 2 M54.6 per previous report from plastics: ASSESSMENT AND PLAN: She is a 30-year-ol d female with symptomati c macromasti a. Based on her body surface area of 2.207, she would require removal of breast tissue of approximat shanta 895-970 per breast. Given her asymmetry, we would likely remove more from the right than the left. We would estimate removing approximat shanta 1000 from the right and 800 grams from the left. At this point, we discussed also her elevated BMI and ideally having her lose some weight prior to surgery to minimize complicati ons. At this point, the patient is uncertain if she would like to pursue a breast reduction given her desire to have another . I did recommend that she work with her primary care physician and consider physical therapy as well as other alternativ e support for her current symptoms. I think she ultimately would benefit from a breast reduction, but the patient just needs to decide what timing works best for her. She can return to see us on an as needed basis.If the report has been electronic allysigned , see completed action list below.____ Gu randa Ceron MD Acute urin tay tract infection 235906226 N34.2 [id number] Erick miller MD [facility] [place] [place] [address] [facility] [address] [facility] [place] [address] 03/02/2024 10:16:39 03/02/2024 11:41:24 Irregular periods 07294309 N92.5 LMP: 02/26/24 Fatigue 50984360 R53.83 vit d normal 05/2023 Tuberculos is screening 064987091 Z11.7 Intentiona l weight loss 331710807 R63.8 Currently on Adipex and from another physician. Despite being on stimulant, patient feels fatigued most of the time. Does not state that she has a heavy menstrual cycle however despite weight loss she is not seeing any difference in her fatigue. Obtain ferritin and B12 number, possible nutritiona l deficiency . Adverse effects and warning signs to ER explained to the patient. Verbalized understand [facility] [id number] SHANNAN MILLER MD [facility] [place] [place] [place] [address] [place] [address] 05/06/2024 09:46:47 05/06/2024 10:42:40 Intramural leiomyoma of uterus 38530035 D25.1 Pain is likely NOT MATERIALS HANDLER in orginWIll do expectant management CT abd/pelvis will be needed if pain returns [id number] Ercik miller MD [facility] [place] [address] [facility] [place] [address] 07/15/2024 14:02:05 07/15/2024 15:38:03 Fatigue 86069058 R53.83 Obesity 151884650 E66.09 Z68.37 Type 2 rose marie betes mellitus without complication 328568366 E11.9 prediabete s at 5.8, pt declined metformin due to gi se. START trulicty. Physical exam normal. family history reviewed the with patient. no family hx of thyroid CA or MEN synd. ae and warning signs to ER explained to the patient verbalized understand ing. Irregular periods N92.5 LMP: 06/27/24 Iron defic iency anemia 54132649 D50.8 [id number] Erick miller MD [facility] and [address] [address] 08/16/2024 09:31:45 08/16/2024 10:08:46 Obesity 320529608 E66.09 Z68.37 Physical exam normal. family history reviewed the with patient. no family hx of thyroid CA or MEN synd. patient heard about the weight loss injection and wants to try it. samples of wegovy given. STOP trulicity. ae and warning signs to ER explained to the patient verbalized understand ing. Iron defic iency anemia 70553425 D50.8 Irregular periods N92.5 LMP: 07/28/24 [id number] Erick miller MD [facility] and [address] [address] 09/24/2024 10:54:46 09/24/2024 12:01:07 Body mass index 30+ - obesity 365870471 Z68.37 bmi 37.4 Obesity 229869675 E66.09 Z68.37 Physical exam normal. family history reviewed the with patient. no family hx of thyroid CA or MEN synd. patient heard about the weight loss injection and wants to try it. samples of wegovy given. STOP trulicity. ae and warning signs to ER explained to the patient verbalized understand ing. Irregular periods N92.5 LMP: 08/27/24 [id number] Erick miller MD [facility] and [address] [place] [address] 10/18/2024 09:58:59 10/18/2024 10:47:43 Chest pain 32361827 R07.9 Obesity 093746457 E66.09 Z68.37 Physical exam normal. family history reviewed the with patient. no family hx of thyroid CA or MEN synd. patient heard about the weight loss injection and wants to try it. samples of wegovy given. STOP trulicity. ae and warning signs to ER explained to the patient verbalized understand ing. Gastroesop hageal reflux disease without esophagitis 524453450 K21.9 [id number] Erick miller MD [facility] and [address] [facility] [place] [place] [address] 11/18/2024 09:20:58 11/18/2024 10:14:33 Body mass index 30+ - obesity 546452622 Z68.38 E66.09 s/e from Wegovy, STOP wegovy, START zepbound. Physical exam normal. family history reviewed the with patient. no family hx of thyroid CA or MEN synd. patient heard about the weight loss injection and wants to try it. ae and warning signs to ER explained to the patient verbalized understand ing. Irregular periods 221771 07 N92.5 LMP: 10/26/24 Gastroesop hageal reflux disease without esophagitis 132062863 K21.9 [id number] SHANNAN MILLER MD [facility] [address] [place] [address] 12/09/2024 11:45:21 12/09/2024 16:47:46 Routine gynecologic examination done 1949716077 9101 Z01.419 Acute urin tay tract infection 090336969 N39.0 Vaginitis 80119064 N76.0 Health Concerns Section Related Observation LastModified by Organization Detai ls LastModified Time None Recorded Concern Status LastModified by Organization Details LastModified Time None Recorded Advance Directives Directive N: Payers Insurance Date Sequence Insurance Name Policy Number Policy Garcia Covered Member ID Garcia Member ID Guarantor Name 02/20/2022 1 [employer] - DOS PRIOR TO 21 (MEDICAID REPLACEMENT - HMO) Ricardo Shah [id number] Ricardo Shah 12/09/2019 1 UNSPECIFIED REMIT PAYOR Ricardo Shah 02/20/2022 1 [employer]BS-[place] BLUE CROSS COMPLETE (MEDICAID REPLACEMENT - HMO) Ricardo Shah [id number] Ricardo Shah 02/20/2022 1 *SELF PAY* Ricardo Shah 02/20/2022 2 MED[place]ID[place] (MEDICAID) Ricardo Shah [id number] Ricardo Shah 02/20/2022 1 MED[place]ID[place] (MEDICAID) Ricardo Shah [id number] Ricardo Shah 02/20/2022 1 [employer]-[place] BLUE CROSS COMPLETE (MEDICAID REPLACEMENT - HMO) [id number] Ricardo Shah [id number] Ricardo Shah 06/10/2023 1 [facility] (HMO) [id number] Ricardo Shah [id number] Ricardo Shah 10/27/2023 1 MED[place] (MEDICAID) Ricardo Shah [id number] Ricardo Shah 02/20/2022 1 [employer]-[place] BLUE CROSS COMPLETE (MEDICAID REPLACEMENT - HMO) Ricardo Shah [id number] Ricardo Shah 12/08/2024 1 [facility] (MEDICAID HMO) [facility] Ricardo Shah [id number] Ricardo Shah 02/20/2022 1 MED[place]ID[place] (MEDICAID) Ricardo Shah [id number] Ricardo Shah 02/20/2022 1 MED[place]ID-[place] (MEDICAID) Ricardo Shah [id number] Ricardo Shah 02/20/2022 2 [employer] - DOS PRIOR TO 21 (MEDICAID REPLACEMENT - HMO) Ricardo Shah [id number] Ricardo Shah 02/20/2022 1 [employer] - DOS PRIOR TO 2021 (HMO) Ricardo Shah [id number] Ricardo Shah 02/20/2022 1 MED[place]ID-[place] (MEDICAID) Ricardo Shah [id number] Ricardo Shah 02/20/2022 1 [employer]-[place] BLUE CROSS COMPLETE (MEDICAID REPLACEMENT - HMO) [id number] Ricardo Shah [id number] Ricardo Shah 02/20/2022 1 [employer] - DOS PRIOR TO 2021 (HMO) [id number] Ricardo Shah [id number] Ricardo Shah 02/20/2022 1 MED[place]ID-[place] (MEDICAID) Ricardo Shah [id number] Ricardo Shah 02/20/2022 1 [employer]-[place] BLUE CROSS COMPLETE (MEDICAID REPLACEMENT - HMO) Ricardo Shah [id number] Ricardo Shah 06/13/2020 1 UNSPECIFIED REMIT PAYOR Ricardo Shah 06/13/2020 1 UNSPECIFIED REMIT PAYOR Ricardo Shah 06/13/2020 1 UNSPECIFIED REMIT PAYOR Ricardo Shah 06/13/2020 1 UNSPECIFIED REMIT PAYOR Ricardo Shah 02/20/2022 1 [facility] - DOS PRIOR TO 2021 (O) [id number] Ricardo Shah [id number] Ricardo Shah 02/20/2022 1 [employer] [facility] (MEDICAID HMO) [id number] Ricardo Shah [id number] Ricardo Shah 02/20/2022 1 [employer] - DOS PRIOR TO 2021 (HMO) Ricardo Shah [id number] Ricardo Shah Notes Date Note Type Note Provider Name a ri Address Organization Details Recorded Time 4 text/html FatigueReported bypatient.Quality:sy mptoms worse during the day; symptoms worse in the evening Severity:change in sleep patterns;change in exercise habits;not able to perform ADLs Duration:episodes lasts >60 minutes Onset/Timing/Duratio ngradual; no change since onset Context:symptoms do not improve on weekends/vacations;p roblems/stress at work or home Modifying Factors:not taking vitamins;recent change in sleep habits Associated Symptoms:no drug/alcohol withdrawal; no anxiety; does not fall asleep during the day; no snoring; periods of not breathing (apnea) have not been observed; no recent change in weight;depressionObe sityReported bypatient.Diagnosis Summary:diagnosis: obesity Context:no inhaled steroids; no oral steroids Associated Symptoms:no depression; no chronic illness; no Prader-Willi Syndrome; no hypothyroidism Co-morbidities:no new co-morbidities since last visit Lifestyle changes:few constitutional symptoms related to diagnosis; no changes in living situation; motivated to continue lifestyle changes; losing weight; exercising more Medication Education:understand s potential side effects; understands administration; understands role of diet [place] [address], [address], [facility] 08/16/2024 10:07:03 5 text/html ObesityReported bypatient.Diagnosis Summary:diagnosis: obesity Context:no inhaled steroids; no oral steroids Associated Symptoms:no depression; no chronic illness; no Prader-Willi Syndrome; no hypothyroidism Co-morbidities:no new co-morbidities since last visit Lifestyle changes:few constitutional symptoms related to diagnosis; no changes in living situation; motivated to continue lifestyle changes; losing weight; exercising more Medication Education:understand s potential side effects; understands administration; understands role of diet [place] [address], [address], [facility] 09/24/2024 22:59:13 5 text/html Gastritis/Peptic Ulcer F/UReported bypatient.Quality:bu rning Severity:moderate Duration:present <1 month Onset/Timing:gradual onset; occurs upon awakening Context:non-smoker; no drug/alcohol abuse;related to caffeine;related to spicy foods;positional Alleviating Factors:nothing helps Associated Symptoms:no frequent cough; no vomiting; no shortness of breath;belching/burp ing;nausea;regurgita tion;heartburn sharp stabbing pain middle of the chest 1 - 2 times a day present only for one day per ptwhen on exertion onlyno short of breathrandomEKG done, normal in the officept declines cardio or pulm referral, ?increased burping due to wegovy, START pepcidhfilemon popvyif not better, pt agreeable to see cardio /pulmae and warning signs to eR explained to the patient verbalized [place]. [place] [address], [address], [facility] 10/18/2024 22:28:29 5 text/html [facility] - HTN HPIReported bypatient.Type:essen tial Duration or Onset:chronic Status:uncontrolled but improving Severitywithout complication Associated Symptoms:no chest pain at rest; no palpitations; no shortness of breath; no light headedness; no rapid weight gain; no orthopnea Modifying Factorsimproved with medications; better with rest;worse with activity Compliance:COMPLIANT WITH and UNDERSTANDS MED USE;noncompliant with dietGastritis/Peptic Ulcer F/UReported bypatient.Quality:bu rning Severity:moderate Duration:present <1 month Onset/Timing:gradual onset; occurs upon awakening Context:non-smoker; no drug/alcohol abuse;related to caffeine;related to spicy foods;positional Alleviating Factors:nothing helps Associated Symptoms:no frequent cough; no vomiting; no shortness of breath;belching/burp ing;nausea;regurgita tion;heartburnObesit yReported bypatient.Diagnosis Summary:diagnosis: obesity Context:no inhaled steroids; no oral steroids Associated Symptoms:no depression; no chronic illness; no Prader-Willi Syndrome; no hypothyroidism Co-morbidities:no new co-morbidities since last visit Lifestyle changes:few constitutional symptoms related to diagnosis; no changes in living situation; motivated to continue lifestyle changes; losing weight; exercising more Medication Education:understand s potential side effects; understands administration; understands role of diet as primary therapy no pain on famotidine, patient happybut since wegovy caused her to have burping a lot, [place] [address], [address], [facility] 11/18/2024 17:30:59 5 text/html Annual GYNReported bypatient.Menstrual cycle:Normal menses Urinary symptoms:No hematuria; No incontinence Vulva:No genital lesion Vagina:Normal vaginal discharge Breast:No breast pain; No breast lump; No nipple discharge Sexual complaints:No sexual complaints; No pain during intercourse; Normal libido Menopausal Symptoms:No menopausal symptoms; Normal vaginal lubrication Psychological symptoms:No depression; No anxiety; No PMDD 34yo presenting for ED follow upHad fibroid uterusWent to ED for painDenies irregular bleeding, denies abnormal discharge, denies heavy mensesWill do expectant managementPain resolved sp pain medications at the [facility] constipated due to iron and opted to d/c her contraception Orientation: Anteverted.Size: 9.1 x 4.7 x 6.2 cm.Parenchyma: Heterogenous myometrial echotexture. Posterior uterine fibroidmeasures up to 2.0 cmCervix: Nabothian cysts.Endometrium: Normal measuring 6 mm in thickness.ADNEXA:Rig ht ovary size: 3.4 x 1.6 x 2.4 cm. Follicular changes are identified withcolor Doppler flow and spectral waveforms.Left ovary size: 2.0 x 1.2 x 2.4 cm. Follicular changes are identified withcolor Doppler flow and spectral waveforms.FREE FLUID: Trace free fluid presumably physiologic.URINARY BLADDER: Incompletely distended and not evaluated[place] [address], [address], [facility] 12/09/2024 12:04:59 OBGyn Episode Ob Episode Information Episode Created Date Number of Fetuses Patient Bloodtype Patient rh Status Prepregnancy Weight lbs Domestic Partner Domestic Partner Phone Father Name [employer] Rep Status 07/09/20 18 1 CLOSED Fetus Data First Name Last Name Admitted to NICU Weight (g) Sex Living Outcome Pediatric Complications Fetus ID Race Codes Race Delivery Type Full Term [id number] Saeid Calculation Initial Saeid Date Initial Exam Date Initial Exam Provider Initial Ultrasound Date Last Menstrual Period Date Ultra Sound Weeks Gestation 0 Eighteen To Twenty Week Saeid Update Ultra Sound Date Fundal Height At Umbil Quickening Date Ultra Sound Latest Weeks Gestation Final Saeid Confirmed By Final Saeid Confirmed Date Final Saeid Date Ultra Sound Latest Days Gestation 0 0 Menstrual History Last Menstrual Date Menses Monthly On Bcp Conception Prior Menses Frequency Hcg Plus Date Menarche Onset Age Delivery Information Delivery Date Delivery Type Labor Anesthesia Weeks Gestation Incision Type Labor Labor Length Hrs Delivered By Post Complications Tubal Sterilization Discharge Date Comments 7 Discharge Information Feeding Method Contraceptive Method Maternal HG B and HCT Levels Ob Episode Information Episode Created Date Number of Fetuses Patient Bloodtype Patient rh Status Prepregnancy Weight lbs Domestic Partner Domestic Partner Phone Father Name Sales [employer] Customer [employer] Rep Status 09/26/19 21 1 CLOSED Fetus Data First Name Last Name Admitted to NICU Weight (g) Sex Living Outcome Pediatric Complications Fetus ID Race Codes Race Delivery Type [id number] Saeid Calculation Initial Saeid Date Initial Exam Date Initial Exam Provider Initial Ultrasound Date Last Menstrual Period Date Ultra Sound Weeks Gestation 05/11/2021 09/26/2020 08/04/2020 0 Eighteen To Twenty Week Saeid Update Ultra Sound Date Fundal Height At Umbil Quickening Date Ultra Sound Latest Weeks Gestation Final Saeid Confirmed By Final Saeid Confirmed Date Final Saeid Date Ultra Sound Latest Days Gestation 0 05/11/20 21 0 Pre-olga Flowsheet Flowsheet Date 09/26/2020 Wayne Score Blood Edema Fundus Height Fundus Units Glucose Ketones Leukocytes Nitrite Labor Signs Protein Cervic Dilation Cervic Effacement Cervic Station 7 wks none Type Weight in lbs Pre/Post Dialysis Refused Weight 238.93317093575 BP Diastolic BP Location Tested BP Systolic BP Type 70 L arm 110 sitting Fetus Heart Rate Present A 155 Present Fetus Movement Comments NT scheduledNIPT NV Flowsheet Date 10/17/2020 Wayne Score Blood Edema Fundus Height Fundus Units Glucose Ketones Leukocytes Nitrite Labor Signs Protein Cervic Dilation Cervic Effacement Cervic Station neg 10 cm none negative none Negative neg Type Weight in lbs Pre/Post Dialysis Refused With clothes 241.751659139147 BP Diastolic BP Location Tested BP Systolic BP Type 82 L arm 110 sitting Fetus Heart Rate Present Fetus Movement Comments Hx if c.section. For repeatN IPT todayNTscheduled Flowsheet Date 11/14/2020 Wayne Score Blood Edema Fundus Height Fundus Units Glucose Ketones Leukocytes Nitrite Labor Signs Protein Cervic Dilation Cervic Effacement Cervic Station 15 cm Type Weight in lbs Pre/Post Dialysis Refused With clothes 244.263295468019 BP Diastolic BP Location Tested BP Systolic BP Type 78 L arm 110 sitting Fetus Heart Rate Present A 145 Present Fetus Movement A Yes Comments Hx of c/sectionDesires repea tAnat US scheduled for 12/27 Flowsheet Date 12/12/2020 Wayne Score Blood Edema Fundus Height Fundus Units Glucose Ketones Leukocytes Nitrite Labor Signs Protein Cervic Dilation Cervic Effacement Cervic Station 18 cm none Type Weight in lbs Pre/Post Dialysis Refused With clothes 250.124880410446 BP Diastolic BP Location Tested BP Systolic BP Type 72 L arm 120 sitting Fetus Heart Rate Present A 155 Present Fetus Movement A Yes Comments Zuri US pendingHx of c/secti onDesires repeat Flowsheet Date 01/09/2021 Wayne Score Blood Edema Fundus Height Fundus Units Glucose Ketones Leukocytes Nitrite Labor Signs Protein Cervic Dilation Cervic Effacement Cervic Station 22 cm none Type Weight in lbs Pre/Post Dialysis Refused With clothes 250.951529409210 BP Diastolic BP Location Tested BP Systolic BP Type 82 L arm 120 sitting Fetus Heart Rate Present A 145 Present Fetus Movement A Yes Comments 50gm and CBC NVDesires repea t c/section Flowsheet Date 02/06/2021 Wayne Score Blood Edema Fundus Height Fundus Units Glucose Ketones Leukocytes Nitrite Labor Signs Protein Cervic Dilation Cervic Effacement Cervic Station 26 cm none 0cm Type Weight in lbs Pre/Post Dialysis Refused Stated 254.542795026109 BP Diastolic BP Location Tested BP Systolic BP Type 80 L arm 120 sitting Fetus Heart Rate Present A 145 Present Fetus Movement A Yes Comments 50gm and CBC todayDesires re [place] Flowsheet Date 02/27/2021 Wayne Score Blood Edema Fundus Height Fundus Units Glucose Ketones Leukocytes Nitrite Labor Signs Protein Cervic Dilation Cervic Effacement Cervic Station 30 cm none Type Weight in lbs Pre/Post Dialysis Refused Weight 256.998558628432 BP Diastolic BP Location Tested BP Systolic BP Type 82 R arm 116 sitting Fetus Heart Rate Present A 145 Present Fetus Movement A Yes Comments US for growthKick counts, PT L precautionsDesires repeat c/section Flowsheet Date 03/13/2021 Wayne Score Blood Edema Fundus Height Fundus Units Glucose Ketones Leukocytes Nitrite Labor Signs Protein Cervic Dilation Cervic Effacement Cervic Station 33 cm none Type Weight in lbs Pre/Post Dialysis Refused With clothes 255.284723161899 BP Diastolic BP Location Tested BP Systolic BP Type 84 L arm 122 sitting Fetus Heart Rate Present A 145 Present Fetus Movement A Yes Comments US for growth, kick counts, PTL precautionsDesires repeat rC/S Flowsheet Date 03/27/2021 Wayne Score Blood Edema Fundus Height Fundus Units Glucose Ketones Leukocytes Nitrite Labor Signs Protein Cervic Dilation Cervic Effacement Cervic Station neg 34 cm none negative none Negative neg Type Weight in lbs Pre/Post Dialysis Refused Weight 258.472256142835 BP Diastolic BP Location Tested BP Systolic BP Type 72 L arm 118 sitting Fetus Heart Rate Present A 145 Present Fetus Movement A Yes Comments f/u growthKick counts, PTL p recautionsGBS [place]. Desires repeat c/section Flowsheet Date 04/10/2021 Wayne Score Blood Edema Fundus Height Fundus Units Glucose Ketones Leukocytes Nitrite Labor Signs Protein Cervic Dilation Cervic Effacement Cervic Station 35 cm none 0cm Type Weight in lbs Pre/Post Dialysis Refused Weight 258.834957160151 BP Diastolic BP Location Tested BP Systolic BP Type 80 124 Fetus Heart Rate Present A 145 Present Fetus Movement A Yes Comments Kick counts, labor precautio nsGBS done today. Considering TOLAC Hx of c/s x 1 Flowsheet Date 04/24/2021 Wayne Score Blood Edema Fundus Height Fundus Units Glucose Ketones Leukocytes Nitrite Labor Signs Protein Cervic Dilation Cervic Effacement Cervic Station 38 cm none Type Weight in lbs Pre/Post Dialysis Refused Weight 259.406317689864 BP Diastolic BP Location Tested BP Systolic BP Type 83 L arm 140 sitting Fetus Heart Rate Present A 145 Present Fetus Movement A Yes Comments For repeat c/sectionKick cou nts, Labor precautions Menstrual History Last Menstrual Date Menses Monthly On Bcp Conception Prior Menses Frequency Hcg Plus Date Menarche Onset Age 1108/04/2020 Delivery Information Delivery Date Delivery Type Labor Anesthesia Weeks Gestation Incision Type Labor Labor Length Hrs Delivered By Post Complications Tubal Sterilization Discharge Date Comments 1 38.3 Discharge Information Feeding Method Contraceptive Method Maternal HG B and HCT Levels
[2025-04-02 18:08] LABS: Hematocrit 36.0 % (36.0-48.0); Hemoglobin 12.0 g/dL (12.0-16.0); Immature Granulocytes Abs Auto 0.02 10^3/uL (0.00-0.03); Immature Granulocytes Pct Auto 0.4 % (0.0-0.5); Lymphocytes Absolute Auto 2.2 10^3/uL (1.2-3.8); Mean Corpuscular HGB Conc 33.3 g/dL (29.9-35.2); Mean Corpuscular Hemoglobin 29.9 pg (26.7-34.0); Mean Corpuscular Volume 89.6 fL (81.0-99.0); Platelet Count 212 10^3/uL (150-450); Red Blood Count 4.02 10^6/uL (4.20-5.40); White Blood Count 5.7 10^3/uL (4.0-11.0)
[2025-04-02 18:25] LABS: Alanine Aminotransferase 19 U/L (14-59); Albumin Globulin Ratio 1.0; Albumin Level 3.8 g/dL (3.4-5.0); Alkaline Phosphatase 96 U/L (46-116); Anion Gap 16.3; Aspartate Amino Transferase 14 U/L (15-37); Blood Urea Nitrogen 16.0 mg/dL (7.0-18.0); Calcium 9.4 mg/dL (8.5-10.1); Carbon Dioxide 24.1 mmol/L (21.0-32.0); Chloride 104 mmol/L (98-107); Estimated GFR (African America >60 (>=60 mL/min/1.73m^2); Estimated GFR (Non-African Ame >60 (>=60 mL/min/1.73m^2); Globulin 3.8 g/dL; Glucose 107 mg/dL (74-106); NT Pro B Type Natriuretic Pept 10.0 pg/mL (<=450.0); Potassium 3.4 mmol/L (3.5-5.1); Sodium 141 mmol/L (136-145); Total Protein 7.6 g/dL (6.4-8.2)
== END 2025-04-02 18:53 | disposition home or self-care (01) ==
PROVIDERS: Nurse Practitioner; Emergency Provider Emergency Medicine
DX: R06.02 Shortness of breath (principal)
CPT/HCPCS: 36415; 71046; 80053; 83880; 84484; 85025; 85378; 93005; 99285